=== PATIENT | male | born 1955 | race African-American/Black ===

== ENCOUNTER 2020-08-14 17:26 | Emergency (ER) | payer OTHER ==
[~2020-08-14] VITALS: Ht 175.3 cm; Wt 84.0 kg
[2020-08-14] MEDS ORDERED: ACETAMINOPHEN 325MG TABLET PO ONE (17:45)
[2020-08-14] MEDS ORDERED: KETOROLAC 60MG/2ML VIAL IM ONE (19:30)
[2020-08-14] MEDS ORDERED: COLB MT (20:52)
[2020-08-14 21:01] VITALS: BP 148/112
[2020-08-14 21:16] LABS: BASOPHILS % 0.2 % (0.0-2.0); HEMATOCRIT. 42.9 % (42.0-52.0); LYMPHOCYTES % 7.4 % (20.0-50.0); MEAN CORPUSCULAR HEMOGLOBIN 25.7 pg (28.0-32.0); MEAN CORPUSCULAR VOLUME 78.6 fL (80.0-94.0); MEAN PLATELET VOLUME 7.9 fl (7.4-10.4); MONOCYTES % 5.8 % (2.0-8.0); NEUTROPHILS % 86.6 % (40.0-76.0); PLATELET 237 x1000/uL (130-400); RED BLOOD CELL COUNT 5.46 mill/uL (4.7-6.1); RED CELL DISTRIBUTION WIDTH 16.7 % (11.6-14.6)
[2020-08-14 21:23] LABS: CHLORIDE 106 mEq/L (98-107)
== END 2020-08-14 21:44 | disposition home or self-care (01) ==
LOC: ER 17:51
DX: M70.21 Olecranon bursitis, right elbow (principal); I10 Essential (primary) hypertension; R73.9 Hyperglycemia, unspecified; D72.829 Elevated white blood cell count, unspecified
CPT/HCPCS: 36415; 73080; 80048; 83605; 84550; 85025; 87040; 96372; 99284; J1885